=== PATIENT | female | born 1965 | race Caucasian/White ===

== ENCOUNTER 2016-10-18 18:32 | Emergency (ER) | payer SELFPAY ==
[~2016-10-18] VITALS: Ht 157.5 cm; Wt 95.0 kg
[~2016-10-18 18:32] MED LIST: BACT2OIN TOP; LORT5TAB PO; ONDA1TAB16 PO; PROM25SU8 PO; SULF1TAB47 PO; ZOVI800T13 PO; [UNRECOGNIZED DRUG - CODE] PO
[2016-10-18 18:34] VITALS: BP 190/105; PULSE 131; RESP 20; TEMP 99.3; O2SAT 92
[2016-10-18] MEDS ORDERED: SODIUM CHLOR 0.9% 1000 ML INJ 1,000 ML IV ONE (19:15)
[2016-10-18] MEDS ORDERED: KETOROLAC TROMETHAMINE 30 MG/ML (IVP) VIAL IV PUSH ONE (19:15)
[2016-10-18] MEDS ORDERED: PROCHLORPERAZINE INJ 10 MG/2 ML VIAL IV PUSH ONE (19:15)
[2016-10-18] MEDS ORDERED: diphenhydrAMINE HCL 50 MG/ML VIAL IV PUSH ONE (19:15)
[2016-10-18 19:29] LABS: AUTOMATED NEUTROPHIL # 4.8 TH/MM3 (1.8-7.7); BASOPHIL # 0.1 TH/MM3 (0-0.2); BASOPHIL % 0.8 % (0.0-2.0); EOSINOPHIL # 0.2 TH/MM3 (0-0.4); EOSINOPHIL % 2.3 % (0.0-4.0); HEMATOCRIT 37.1 % (35.0-46.0); HEMO FLAGS DIFF FINAL; LYMPHOCYTE # 1.9 TH/MM3 (1.0-4.8); MEAN CELL VOLUME 83.2 FL (80.0-100.0); MEAN CORPUSCULAR HEMOGLOBIN 28.6 PG (27.0-34.0); MEAN CORPUSCULAR HGB CONC 34.4 % (32.0-36.0); MONO % 6.9 % (0.0-8.0); PLATELET COUNT 237 TH/MM3 (150-450); RED BLOOD COUNT 4.46 MIL/MM3 (4.00-5.30); WHITE BLOOD COUNT 7.5 TH/MM3 (4.0-11.0)
[2016-10-18 19:34] VITALS: BP 159/82; PULSE 67; RESP 18; O2SAT 100
[2016-10-18 19:47] LABS: BACTERIA, URINE OCC /hpf; BLOOD, URINE SMALL (NEG); GLUCOSE,URINE NEG (NEG); KETONE, URINE NEG (NEG); MUCUS URINE FEW /lpf (OCC); NITRITE,URINE NEG (NEG); PH, URINE 5.5 (5.0-8.5); SQUAMOUS EPITHELIAL CELL URINE 3 /hpf (0-5); URINE COLOR LIGHT-YELLOW (YELLW/STRAW)
[2016-10-18 19:48] LABS: COMMENT (UR) CULT NOT INDICATED; CULTURE IF INDICATED CULT NOT INDICATED
[2016-10-18 20:03] LABS: ALKALINE PHOSPHATASE 66 U/L (45-117); ALT (GPT) 26 U/L (10-53); ANION GAP 9 MEQ/L (5-15); AST (GOT) 23 U/L (15-37); BICARBONATE 24.8 MEQ/L (21.0-32.0); BLOOD UREA NITROGEN 11 MG/DL (7-18); CHLORIDE 106 MEQ/L (98-107); GLOMERULAR FILTRATION RATE 67 ML/MIN (>89); POTASSIUM 3.8 MEQ/L (3.5-5.1); SODIUM (NA) 140 MEQ/L (136-145); TOTAL BILIRUBIN ADULT 0.3 MG/DL (0.2-1.0)
[2016-10-18] MEDS ORDERED: BUTA1CAP PO (20:23)
--- NOTE | 2016-10-18 20:23 | PD ---
HPI Chief Complaint: Headache Time Seen by Provider: 18:54 Travel History International Travel<30 days: No Contact w/Intl Traveler<30days: No Traveled to known affect area: No History of Present Illness HPI Patient is a 51-year-old female with history of high-grade to comes in complaining of a migraine for 3 days. She says she has taken Tylenol without much relief. She also says she has history of fibromyalgia and spinal stenosis and her pain medicine doctors out of town until November 08. She denies any injuries. She says her headache is typical of her past migraines. She has had some vomiting. She denies any abdominal pain. She says all of her joints hurt her. PFSH Past Medical History Autoimmune Disease: Yes (RA;FIBROMYALGIA) Gastrointestinal Disorders: Yes (IBS) GERD: Yes Glaucoma: Yes Headaches: Yes Hypertension: Yes Tetanus Vaccination: < 5 Years Influenza Vaccination: No ?: Not Menopausal: Yes Ovarian Cysts: Yes (RT - REMOVED) Past Surgical History Appendectomy: Yes Section: Yes Cholecystectomy: Yes Social History Alcohol Use: No Tobacco Use: No Substance Use: No Allergies-Medications (Allergen,Severity, Reaction): Coded Allergies: Imitrex (Verified Allergy, Unknown, CHEST TIGHTNESS, 10/18/16) Iohexol (OMNIPAQUE) (Unverified Allergy, Unknown, needs to be premedicated , 10/18/16) Erythromycin (Verified Adverse Reaction, Intermediate, NAUSEA AND VOMITING , 10/18/16) Reported Meds & Prescriptions Reported Meds & Active Scripts Active Zovirax (Acyclovir) 800 Mg Tab 800 Mg PO 5 TIMES A DAY Phenergan (Promethazine HCl) 25 Mg Tab 25 Mg PO Q6HPRN FOR NAUSEA/VOMITING Reported Zofran Tab (Ondansetron HCl) 4 Mg Tab 0 PO DIRECTED UNKNOWN DOSE Lortab 5/500 (Acetaminophen/Hydrocodone Bitart) 5 Mg/500 Mg Tab 1 Tab PO Q4- 6HPRN FOR PAIN Cleocin (Clindamycin HCl) 75 Mg Cap 0 PO UNKNOWN DOSE- NOT STARTED Bactrim Ds (Trimethoprim/Sulfamethoxazole) Tab 1 Tab PO BID Bactroban (Mupirocin) 22 Gm Oint 2 % TOP TID 7 Days APPLY TO AFFECTED AREAS Review of Systems Except as stated in HPI: all other systems reviewed are Neg Eyes: No: Blurred Vision HENT: Positive: Headaches Cardiovascular: No: Chest Pain or Discomfort Respiratory: No: Shortness of Breath Gastrointestinal: Positive: Nausea, Vomiting, No: Abdominal Pain Musculoskeletal: Positive: Myalgias, Arthralgias Skin: No Rash, No Change in Pigmentation Neurologic: No: Weakness, Dizziness Physical Exam Narrative GENERAL: Awake and alert, in no acute distress. SKIN: Focused skin assessment warm/dry. HEAD: Atraumatic. Normocephalic. EYES: Pupils equal and round. No scleral icterus. Extraocular movements intact. ENT: Mucous membranes pink and moist. NECK: Trachea midline. No JVD. CARDIOVASCULAR: Regular rate and rhythm. No murmur appreciated. RESPIRATORY: No accessory muscle use. Clear to auscultation. Breath sounds equal bilaterally. GASTROINTESTINAL: Abdomen soft, non-tender, nondistended. MUSCULOSKELETAL: No obvious deformities. No clubbing. No cyanosis. No edema. NEUROLOGICAL: Awake and alert. No obvious cranial nerve deficits. Motor grossly within normal limits. Normal speech. PSYCHIATRIC: Appropriate mood and affect; insight and judgment normal. Data Data Last Documented VS Vital Signs Date Time Temp Pulse Resp B/P Pulse Ox O2 Delivery O2 Flow Rate FiO2 10/18/16 19:34 67 18 159/82 100 10/18/16 18:34 99.3 Orders Complete Blood Count With Diff (10/18/16 19:08) Comprehensive Metabolic Panel (10/18/16 19:08) Ed Urine Pregnancytest Poc (10/18/16 19:08) Urinalysis - C+S If Indicated (10/18/16 19:08) Sodium Chlor 0.9% 1000 Ml Inj (Ns 1000 M (10/18/16 19:15) Prochlorperazine Inj (Compazine Inj) (10/18/16 19:15) Diphenhydramine Inj (Benadryl Inj) (10/18/16 19:15) Ketorolac Inj (Toradol Inj) (10/18/16 19:15) Labs Laboratory Tests Test 10/18/16 19:13 White Blood Count 7.5 TH/MM3 Red Blood Count 4.46 MIL/MM3 Hemoglobin 12.8 GM/DL Hematocrit 37.1 % Mean Corpuscular Volume 83.2 FL Mean Corpuscular Hemoglobin 28.6 PG Mean Corpuscular Hemoglobin 34.4 % Concent Red Cell Distribution Width 17.0 % Platelet Count 237 TH/MM3 Mean Platelet Volume 7.3 FL Neutrophils (%) (Auto) 65.0 % Lymphocytes (%) (Auto) 25.0 % Monocytes (%) (Auto) 6.9 % Eosinophils (%) (Auto) 2.3 % Basophils (%) (Auto) 0.8 % Neutrophils # (Auto) 4.8 TH/MM3 Lymphocytes # (Auto) 1.9 TH/MM3 Monocytes # (Auto) 0.5 TH/MM3 Eosinophils # (Auto) 0.2 TH/MM3 Basophils # (Auto) 0.1 TH/MM3 CBC Comment DIFF FINAL Differential Comment Urine Color LIGHT-YELLOW Urine Turbidity CLEAR Urine pH 5.5 Urine Specific [place] 1.012 Urine Protein NEG mg/dL Urine Glucose (UA) NEG mg/dL Urine Ketones NEG mg/dL Urine Occult Blood SMALL Urine Nitrite NEG Urine Bilirubin NEG Urine Urobilinogen LESS THAN 2.0 MG/DL Urine Leukocyte Esterase NEG Urine WBC 1 /hpf Urine Squamous Epithelial 3 /hpf Cells Urine Bacteria OCC /hpf Urine Mucus FEW /lpf Microscopic Urinalysis Comment CULT NOT INDICATED Sodium Level 140 MEQ/L Potassium Level 3.8 MEQ/L Chloride Level 106 MEQ/L Carbon Dioxide Level 24.8 MEQ/L Anion Gap 9 MEQ/L Blood Urea Nitrogen 11 MG/DL Creatinine 0.90 MG/DL Estimat Glomerular Filtration 67 ML/MIN Rate Random Glucose 102 MG/DL Calcium Level 8.4 MG/DL Total Bilirubin 0.3 MG/DL Aspartate Amino Transf 23 U/L (AST/SGOT) Alanine Aminotransferase 26 U/L (ALT/SGPT) Alkaline Phosphatase 66 U/L Total Protein 7.5 GM/DL Albumin 3.6 GM/DL [facility] Medical Decision Making Medical Screen Exam Complete: Yes Emergency Medical Condition: Yes Medical Record Reviewed: Yes Differential Diagnosis Migraine versus tension headache versus chronic pain Narrative Course Patient is a 51-year-old female comes in complaining of a migraine headache. Exam shows no neurologic abnormalities. IV established, labs sent. Labs show no acute abnormalities. Given IV fluids, Compazine, Benadryl, Toradol. She reports feeling better. We'll discharge with prescription for Fioricet. Advised follow-up with her doctors. Advised to return to the ED as needed for any worsening symptoms. Diagnosis Primary Impression: Headache Qualified Code: R51 - Acute nonintractable headache, unspecified headache type Patient Instructions: General Instructions, Migraine Headache (ED) Additional Instructions: Follow up with your doctors. Take Fioricet as needed for migraines. Return to the ED as needed for any worsening symptoms. Scripts Dvnvtwsfpx-Opqdqmrxqzgbo-Elwllaln (Fioricet)50-300-40 Mg Cap1 Cap PO Q4H PRN ( HEADACHE) #12 CAP Ref 0 Prov:Cleo Deutsch MD 10/18/16 Disposition: 01 DISCHARGE HOME Condition: Stable Cleo Deutsch MD October 18, 2016 20:23
[2016-10-18] MEDS ORDERED: ACETAMIN 325 MG/BUTALBITAL 50 MG/CAFFEINE 40 MG TAB PO ONE (20:45)
[2016-10-18 20:58] VITALS: BP 144/82; PULSE 65; RESP 18; O2SAT 100
== END 2016-10-18 21:06 | disposition home or self-care (01) ==
LOC: NEPD 18:32
DX: R51 Headache (principal); M79.7 Fibromyalgia; K21.9 Gastro-esophageal reflux disease without esophagitis; K58.9 Irritable bowel syndrome, unspecified; I10 Essential (primary) hypertension
CPT/HCPCS: 80053; 81001; 84703; 85025; 96374; 96375; 99284; J0780; J1200; J1885; J7030